=== PATIENT | female | born 1950 | race Caucasian/White ===

== ENCOUNTER 2019-07-12 14:36 | Inpatient (IN) | payer OTHER, MEDICAID ==
--- NOTE | 2019-07-08 19:05 | NUR ---
Opening Shift Note Assumed care of patient, awake and alert.Pt C/O pain09/10. Will give pain medication as ordered. Instructed on POC and to call for assist PRN, will continue to monitor for changes Q1hr and PRN.
[~2019-07-12] VITALS: Ht 152.4 cm; Wt 129.2 kg
[2019-07-12 15:59] LABS: Basophils # (auto) 0.1 10 ^3/uL (0-0.2); Basophils % (auto) 1.2 % (0.0-2.0); Eosinophils # (auto) 0.2 10 ^3/uL (0-0.8); Eosinophils % (auto) 2.1 % (0.0-7.0); Hematocrit 43.9 % (41.0-53.0); Hemoglobin 14.1 g/dL (13.5-17.5); Lymphocytes # (auto) 1.3 10 ^3/uL (0.4-5.4); Lymphocytes % (auto) 10.9 % (10.0-50.0); Mean Corpuscular Hemoglobin 27.2 pg (28.0-32.0); Mean Corpuscular Volume 84.9 fL (80.0-100.0); Monocytes # (auto) 0.7 10 ^3/uL (0-1.3); Monocytes % (auto) 6.1 % (0.0-12.0); Neutrophils # (auto) 9.2 10 ^3/uL (1.6-8.6); Neutrophils % (auto) 79.7 % (37.0-80.0); Platelet Count (auto) 295 10^3/uL (140-450); Red Blood Cells 5.17 10^6/uL (4.5-5.90); Red Cell Distribution Width 15.8 % (11.8-14.3); White Blood Cell 11.5 10^3/uL (4.4-10.8)
[2019-07-12 16:19] LABS: Alanine Aminotransferase 24 U/L (16-61); Albumin 2.9 g/dL (3.4-5.0); Anion Gap 8 (5-15); Aspartate Aminotransferase 18 U/L (15-37); BUN/Creatinine Ratio 28.6; Blood Urea Nitrogen 24 mg/dL (7-18); Calcium 8.4 mg/dL (8.5-10.1); Carbon Dioxide 29 mmol/L (21-32); Chloride 100 mmol/L (98-107); GFR African American 118 mL/min; GFR Non-African American 97 mL/min; Glucose 197 mg/dL (74-106); Sodium 137 mmol/L (136-145)
[2019-07-12 16:21] LABS: Alkaline Phosphatase 106 U/L (45-117); Bilirubin, Total 0.6 mg/dL (0.2-1.0); Total Protein 6.9 g/dL (6.4-8.2)
[2019-07-12] MEDS ORDERED: HYDROcodone-ACET 5/325MG TAB PO ONE (19:30)
[2019-07-12] MEDS ORDERED: ONDANSETRON ODT 4 MG TAB PO ONE (19:30)
[2019-07-12] MEDS ORDERED: AZITHROMYCIN 500MG/ 250ML 250 ML IV ONE (22:45)
[2019-07-12] MEDS ORDERED: cefTRIAXone 1GM/50ML D5W 50 ML IV ONE (22:45)
[2019-07-12 23:45] LABS: INR 0.97 (0.9-1.15); Partial Thromboplastin Time 27.6 sec (23.64-32.05)
[2019-07-13] MEDS ORDERED: IOHEXOL 350 MG/ML 100ML IJ ONE (02:55)
[2019-07-13] MEDS ORDERED: MORPHINE SULFATE 4 MG/ML SYR/VIAL IV ONE (03:45)
[2019-07-13] MEDS ORDERED: ONDANSETRON HCL 4 MG/2 ML VIAL IV ONE (03:45)
[2019-07-13] MEDS ORDERED: DEXTROSE (50%) 50ML SYRG IV PRN (05:15)
[2019-07-13] MEDS ORDERED: TEMAZEPAM 15 MG CAP PO PRN (05:15)
[2019-07-13] MEDS ORDERED: ONDANSETRON HCL 4 MG/2 ML VIAL IV PRN (05:15)
[2019-07-13] MEDS ORDERED: ACETAMINOPHEN 325 MG TAB PO PRN (05:15)
[2019-07-13] MEDS ORDERED: MORPHINE SULF INJ 2 MG/ML SYRINGE 1ML IV PRN ×2 (05:45→11:00)
[2019-07-13] MEDS ORDERED: NITROGLYCERIN 0.4 MG SL TAB SL PRN (05:45)
[2019-07-13] MEDS ORDERED: ALBUTEROL SULF HFA 90MCG INH 200DOSE IN SCH (06:00)
[2019-07-13] MEDS: ACCU-CHEK COMFORT CURVE STRIP VI SCH ×4 (07:00→22:00)
[2019-07-13] MEDS: InsuLIN REG 1unit/0.01ml Soln (100units/ml) SC SCH ×4 (07:00→22:00)
[2019-07-13 07:18] LABS: Magnesium 1.8 mg/dL (1.6-2.6)
[2019-07-13 07:27] LABS: CRP High Sensitivity 4.43 mg/dL (< 0.3)
[2019-07-13 09:45] VITALS: BP 117/61
--- NOTE | 2019-07-13 09:45 | NUR ---
Telemetry admit from ER YEIMI BORREGO admitted to Telemetry unit after SBAR received. Patient oriented to MARTIN BARRETORN primary RN, unit,245 room,A bed, and unit policies regarding patient care and visiting hours. Patient now on continuous telemetry monitoring, tele box #13 and telemetry reading on arrival to unit is SR. Patient placed on bedside oxygen, weighed by bedscale and encouraged to call if they need something. All questions and concerns addressed, patient verbalized understanding.
[2019-07-13] MEDS ORDERED: ASCORBIC ACID 1,000 MG TAB PO SCH (10:00)
[2019-07-13] MEDS ORDERED: LISINOPRIL 10 MG TAB PO SCH (10:00)
[2019-07-13] MEDS ORDERED: HYDROcodone-ACET 5/325MG TAB PO PRN (11:00)
[2019-07-13] MEDS ORDERED: DOCUSATE SOD 100 MG CAP PO PRN (11:00)
[2019-07-13] MEDS ORDERED: LABETALOL HCL 5 MG/ML 4ML SYRINGE IV PRN (11:00)
--- NOTE | 2019-07-13 11:00 | NUR ---
Mujica catheter insertion Patient assessed and determined to be in need of mujica catheter. Order obtained from MD. Patient educated on catheter and reason for insertion. All questions answered. Mujica catheter 14 guage Irish inserted with clean sterile technique. Patient tolerated well.
[2019-07-13] MEDS: ENOXAPARIN SOD 40 MG/0.4 ML SYRINGE SC SCH (11:16)
[2019-07-13] MEDS: CHOLECALCIFEROL (VITD3) 1,000IU=25mCg TAB PO SCH (11:16)
[2019-07-13] MEDS: FAMOTIDINE 20 MG TAB PO SCH ×2 (11:17→22:45)
[2019-07-13] MEDS: ZINC SULFATE 220mg CAP or TAB PO SCH (11:17)
[2019-07-13] MEDS: HCTZ 25 MG TAB PO SCH (11:19)
[2019-07-13] MEDS: DOXYCYCLINE 100MG/250ML 250 ML IV SCH ×2 (11:19→22:43)
[2019-07-13 13:00] VITALS: BP 145/85
--- NOTE | 2019-07-13 13:00 | NUR ---
WOUND CARE PHOTOS TAKEN.
[2019-07-13] MEDS ORDERED: PANT1INJ3 PO (13:31)
[2019-07-13] MEDS ORDERED: LISI-646 PO (13:31)
[2019-07-13] MEDS ORDERED: GLIP10TA9 PO (13:31)
[2019-07-13] MEDS ORDERED: HCTZ25T PO (13:31)
[2019-07-13] MEDS ORDERED: TRAZ100T3 PO (13:31)
[2019-07-13] MEDS ORDERED: LEVO125T7 PO (13:31)
[2019-07-13] MEDS ORDERED: HYDR-531 PO (13:31)
[2019-07-13] MEDS ORDERED: SERT-274 PO (13:31)
[2019-07-13] MEDS ORDERED: METF-370 PO (13:31)
[2019-07-13] MEDS ORDERED: FAMO-12 PO (13:31)
[2019-07-13] MEDS ORDERED: DICL1.3D21 TOP (13:31)
--- NOTE | 2019-07-13 15:30 | NUR ---
1300ML DRAINED FROM AGUERO
--- NOTE | 2019-07-13 15:30 | NUR ---
Report Received Received report form JOSEPH Newberry.
--- NOTE | 2019-07-13 16:00 | NUR ---
Patient Arrived to Unit Patient arrived to unit. Tele Box 14. Patient currently shows no signs of distress, respirations even and unlabored at 2L nasal cannula. Patient refusing physical assessment at this time and is sitting up in bed to eat. Patient educated on need for physical assessment and told that I would return after she is done eating to assess blood sugar and attempt another physical, as well as vital signs, patient verbalized understanding and agrees. Safety precautions in place, will continue to monitor.
[2019-07-13 17:03] VITALS: BP 127/65
--- NOTE | 2019-07-13 17:30 | NUR ---
New Tele Box New Tele Box #30. Patient set up HR currently 89.
--- NOTE | 2019-07-13 18:55 | NUR ---
Paged Hospitalist Paged hospitalist. Patient stating Morphine is not helping with pain right should and wrist pain.
--- NOTE | 2019-07-13 19:10 | NUR ---
Opening note Assumed care of patient. Patient alert and orientated x4. No SOB or distress noted. Poc reviewed. Bed locked in lowest position. Side rails up x2. Call light within reach. Will continue to monitor.
--- NOTE | 2019-07-13 19:10 | NUR ---
Closing Note Report given to Maxine HORVATH RN.
[2019-07-13] MEDS: HYDROmorphone HCL 2 MG/ML VL IV PRN (19:48)
[2019-07-13 22:17] VITALS: BP 129/68
[2019-07-14] MEDS: HYDROmorphone HCL 2 MG/ML VL IV PRN ×4 (00:37→21:28)
[2019-07-14 05:35] VITALS: BP 137/80
[2019-07-14 06:00] LABS: Basophils # (auto) 0 10 ^3/uL (0-0.2); Basophils % (auto) 0.4 % (0.0-2.0); Eosinophils # (auto) 0.1 10 ^3/uL (0-0.8); Eosinophils % (auto) 1.8 % (0.0-7.0); Hematocrit 37.9 % (36.0-46.0); Hemoglobin 12.1 g/dL (12.2-16.2); Lymphocytes % (auto) 15.3 % (10.0-50.0); Mean Corpuscular Hemoglobin 27.6 pg (28.0-32.0); Monocytes # (auto) 0.8 10 ^3/uL (0-1.3); Monocytes % (auto) 11.7 % (0.0-12.0); Neutrophils # (auto) 4.9 10 ^3/uL (1.6-8.6); Neutrophils % (auto) 70.8 % (37.0-80.0); Platelet Count (auto) 240 10^3/uL (140-450); Red Blood Cells 4.41 10^6/uL (4.0-5.20); Red Cell Distribution Width 15.8 % (11.8-14.3); White Blood Cell 6.9 10^3/uL (4.4-10.8)
[2019-07-14 06:22] LABS: Potassium 3.9 mmol/L (3.5-5.1)
[2019-07-14] MEDS: ACCU-CHEK COMFORT CURVE STRIP VI SCH ×4 (06:23→22:11)
[2019-07-14] MEDS: InsuLIN REG 1unit/0.01ml Soln (100units/ml) SC SCH ×4 (06:23→22:14)
[2019-07-14 06:30] LABS: Albumin 2.6 g/dL (3.4-5.0); BUN/Creatinine Ratio 28.9; Bilirubin, Total 0.6 mg/dL (0.2-1.0); Calcium 8.2 mg/dL (8.5-10.1); Total Protein 6.8 g/dL (6.4-8.2)
--- NOTE | 2019-07-14 07:30 | NUR ---
Opening Shift Note Assuming care of patient. Patient is awake and alert. Patient denies pain. Patient shows no signs or symptoms of distress or shortness of breath. Bed is locked and lowered with side rails up x2. Instructed patient on the plan of care for today and to call for assistance as needed. Call light within reach. Will continue to round hourly and as needed.
[2019-07-14 09:04] VITALS: BP 135/72
[2019-07-14] MEDS: cefTRIAXone 1GM/50ML D5W 50 ML IV SCH (09:37)
[2019-07-14] MEDS: FAMOTIDINE 20 MG TAB PO SCH ×2 (09:38→22:03)
[2019-07-14] MEDS: ZINC SULFATE 220mg CAP or TAB PO SCH (09:39)
[2019-07-14] MEDS: CHOLECALCIFEROL (VITD3) 1,000IU=25mCg TAB PO SCH (09:39)
[2019-07-14] MEDS: ENOXAPARIN SOD 40 MG/0.4 ML SYRINGE SC SCH (09:39)
[2019-07-14] MEDS: HCTZ 25 MG TAB PO SCH (09:39)
[2019-07-14] MEDS ORDERED: POTASSIUM CHL 20 Meq TABLET PO ONE (10:30)
[2019-07-14] MEDS ORDERED: FUROSEMIDE 40 MG TAB PO ONE (10:30)
[2019-07-14] MEDS ORDERED: LEVOTHYROXINE SODIUM 50 MCG TAB PO ONE (10:30)
[2019-07-14] MEDS ORDERED: SERTRALINE HCL 50 MG TAB PO ONE (10:30)
[2019-07-14] MEDS ORDERED: LISINOPRIL 10 MG TAB PO ONE (10:30)
[2019-07-14 13:11] VITALS: BP 142/77
[2019-07-14 17:05] VITALS: BP 120/79
[2019-07-14 17:36] LABS: Urine WBC None Seen /hpf (0 - 5)
[2019-07-14 17:57] LABS: Urine Bacteria NONE SEEN /hpf (None Seen); Urine Blood TRACE /uL (Negative); Urine Specific Gravity 1.006 (1.001-1.035)
--- NOTE | 2019-07-14 19:21 | NUR ---
Closing Shift Note Patient resting in bed with eyes closed. No distress noted. Report given. Will endorse care to the night time babysitter RN.
--- NOTE | 2019-07-14 19:22 | NUR ---
Opening Shift Note Assumed care of patient, awake and alert. No S/S of distress/SOB or pain. Instructed on POC and to call for assist PRN, will continue to monitor for changes Q1hr and PRN.
[2019-07-14 22:11] VITALS: BP 139/57
[2019-07-15] MEDS: HYDROmorphone HCL 2 MG/ML VL IV PRN ×3 (01:22→20:04)
[2019-07-15 05:45] VITALS: BP 139/64
[2019-07-15] MEDS ORDERED: LEVOTHYROXINE SODIUM 50 MCG TAB PO SCH (07:00)
[2019-07-15] MEDS: ACCU-CHEK COMFORT CURVE STRIP VI SCH ×3 (07:00→17:18)
[2019-07-15] MEDS: InsuLIN REG 1unit/0.01ml Soln (100units/ml) SC SCH ×3 (07:00→17:00)
[2019-07-15 07:31] LABS: BUN/Creatinine Ratio 29.2; Calcium 8.6 mg/dL (8.5-10.1); Potassium 3.9 mmol/L (3.5-5.1)
[2019-07-15 08:52] VITALS: BP 136/80
[2019-07-15] MEDS: ZINC SULFATE 220mg CAP or TAB PO SCH (09:56)
[2019-07-15] MEDS: cefTRIAXone 1GM/50ML D5W 50 ML IV SCH (09:56)
[2019-07-15] MEDS: FAMOTIDINE 20 MG TAB PO SCH (09:56)
[2019-07-15] MEDS: ENOXAPARIN SOD 40 MG/0.4 ML SYRINGE SC SCH (09:57)
[2019-07-15] MEDS ORDERED: LISINOPRIL 10 MG TAB PO SCH (10:00)
[2019-07-15] MEDS ORDERED: SERTRALINE HCL 50 MG TAB PO SCH (10:00)
[2019-07-15] MEDS ORDERED: FUROSEMIDE 40 MG TAB PO SCH (10:00)
[2019-07-15] MEDS ORDERED: POTASSIUM CHL 20 Meq TABLET PO SCH (10:00)
[2019-07-15 13:00] VITALS: BP_SYST 142; BP_SYST 94; BP_DIAS 48; BP_DIAS 81
[2019-07-15 16:34] VITALS: BP 151/85
--- NOTE | 2019-07-15 19:03 | NUR ---
Closing Shift Note Patient resting in bed. No distress noted. Report given. Will endorse care to the manufacturing shift supervisor RN.
[2019-07-15 19:50] VITALS: BP 151/85
[2019-07-15] MEDS ORDERED: cloNIDine HCL 0.1 MG TAB PO PRN (20:00)
--- NOTE | 2019-07-15 20:45 | NUR ---
Discharge instructions given as ordered. Encourage to follow up with PMD as instructed. All questions and concerns addressed. Patient verbalized understanding. Medication reconciliation form completed and copy given to patient. Home medications held in Pharmacy returned to patient, and needed vaccines given. IV removed with catheter intact, pressure dressing applied, mujica catheter removed, pt voided Telemetry unit returned to ICU. Patient taken to vehicle via wheelchair with all personal belongings, accompanied by staff and family member. No distress noted at time of departure.
== END 2019-07-15 20:45 | disposition home health service (06) | DRG 553 ==
LOC: EDSEX 14:36 → EDBD 14:36 → ER 14:36 → TELE 14:37 → TELE-EAST 07-13 10:12 → TELE-CENTR 07-13 15:58 → TELE-EAST 07-13 16:32 → TELE-CENTR 07-13 16:33 → TELE-EAST 07-13 16:36 → TELE-CENTR 07-13 16:39
PROVIDERS: ADMIT Nurse Practitioner; ATTEND Hospitalist
DX: M15.9 Polyosteoarthritis, unspecified (principal); I50.41 Acute combined systolic (congestive) and diastolic (congestive) heart failure; L03.116 Cellulitis of left lower limb; L03.115 Cellulitis of right lower limb; L03.113 Cellulitis of right upper limb; Z68.44 Body mass index [BMI] 60.0-69.9, adult; I11.0 Hypertensive heart disease with heart failure; E11.9 Type 2 diabetes mellitus without complications; E66.01 Morbid (severe) obesity due to excess calories; R79.89 Other specified abnormal findings of blood chemistry; M71.9 Bursopathy, unspecified; D72.829 Elevated white blood cell count, unspecified; Z20.828 Contact with and (suspected) exposure to other viral communicable diseases; E88.09 Other disorders of plasma-protein metabolism, not elsewhere classified; Z74.01 Bed confinement status; Z86.73 Personal history of transient ischemic attack (TIA), and cerebral infarction without residual deficits; Z99.3 Dependence on wheelchair
CPT/HCPCS: 36415; 71045; 71275; 73030; 73100; 73200; 80048; 80053; 81001; 82550; 82728; 82962; 83036; 83605; 83615; 83735; 83880; 84443; 84484; 84550; 85025; 85379; 85610; 85730; 86141; 87040; 87070; 87086; 87804; 87880; 93005; 93306; 93970; 96365; 96366; 96368; 96375; G0378; J0696; J1815; J2405; J3490; Q0162